=== PATIENT | female | born 1965 | race Caucasian/White ===

== ENCOUNTER 2017-05-13 19:26 | Inpatient (IN) | payer OTHER ==
[~2017-05-13] VITALS: Ht 166.4 cm; Wt 141.7 kg
--- NOTE | ~2017-05-13 | OR ---
PATIENT'S NAME: ALANIS [facility] AGE: 51 Y [address] ROOM: [place] [address] [place] [facility] [place]: 05/13/2017 OR/Procedure Report DISCHARGE DATE: FAMILY PHYSICIAN: PHYSICIAN, NO ATTENDING PHYSICIAN: BONITA RICHARDSON V SURGEON: Geo Beltran MD SILVICULTURE FORESTER: DATE OF PROCEDURE: 05/19/2017 PREOPERATIVE DIAGNOSIS: Cat bite, right lower extremity with cellulitis rule out anterior ankle soft tissue abscess. POSTOPERATIVE DIAGNOSIS: Right lower extremity cellulitis without abscess. PROCEDURE PERFORMED: Incision and drainage of superficial right anterior leg soft tissue infection. ANESTHESIA: 3 mL of 1% Xylocaine. SPECIMEN: None. INDICATION: The patient is a 51-year-old young lady, who approximately 1 week ago had a scratch or a bite from her cat on her posterior calf. She developed a lot of swelling and erythema without fluctuance. She had no signs of compartment syndrome. We have done antibiotics and the posterior calf is normal, is almost normal around the site of the injury, however, just above the ankle crease of the lower right lower extremity, there is a lot of induration and erythema. We have recommended incision and drainage to rule out soft tissue abscess. DESCRIPTION OF PROCEDURE: After informed consent, the patient in her hospital suite had her anterior lower right lower extremity just above the ankle crease prepped with alcohol. We injected 3 mL of 1% Xylocaine. Made a 1 inch incision with a 15 blade scalpel down to the bone. A lot of soft tissue edema was noted without evidence of purulent fluid. Venous bleeding was noted due to the Lovenox utilization. Pressure held. The wrap placed. Continue medical management. GEO BELTRAN MD WTS/modl PATIENT'S NAME: KARLA THAPA [facility] AGE: 51 Y [address] ROOM: [place] [address] [place] [facility] [place]: 05/13/2017 OR/Procedure Report DISCHARGE DATE: FAMILY PHYSICIAN: PHYSICIAN, NO ATTENDING PHYSICIAN: BONITA RICHARDSON V /[id number] d: 05/19/17 1456 t: 05/27/17 0911, OPERATIVE SUMMARY
--- NOTE | ~2017-05-13 | HP ---
PATIENT'S NAME: ALANIS [facility] AGE: 51 Y [address] ROOM: [place] [address] [place]ATION: [facility] [place] ADMIT DATE: 05/13/2017 History & Physical DISCHARGE DATE: FAMILY PHYSICIAN: PHYSICIAN, NO ATTENDING PHYSICIAN: BONITA RICHARDSON V DATE OF SERVICE: CHIEF COMPLAINT: Right lower extremity swelling. HISTORY OF PRESENT ILLNESS: The patient is a previously healthy, 51-year-old female. She stepped on one of her cats yesterday and either got bit or scratched. She bled profusely from her right calf from the puncture wound, but eventually that stopped. Today, the right calf swelled up and turned purplish. Later in the day, the patient developed nausea, vomiting, fevers, and chills. She initially went to [facility] and subsequently went to the ER. Here, she was found to have a temperature of 103.7 and a white count of 18. An admission for intravenous antibiotics was requested. REVIEW OF SYSTEMS: The patient endorses nausea, vomiting, fevers, and chills. She denies any chest pain, diaphoresis, or syncope. All systems have been reviewed and are negative aside from the pertinent positives mentioned above. PAST MEDICAL HISTORY: Significant for distant tonsillectomy. CURRENT MEDICATIONS: None. ALLERGIES: THE PATIENT HAS A CONFIRMED PENICILLIN AND SULFA ALLERGY. SOCIAL HISTORY: Negative for any toxic habits. FAMILY HISTORY: Reviewed and is noncontributory due to known underlying etiology for the patient's presentation. PHYSICAL EXAMINATION: VITAL SIGNS: Blood pressure 112/ , temperature 103.7, blood pressure PATIENT'S NAME: KARLA THAPA [facility] AGE: 51 Y [address] ROOM: [place] [address] LOCATION: [facility] [place]MIT DATE: 05/13/2017 History & Physical DISCHARGE DATE: FAMILY PHYSICIAN: PHYSICIAN, NO ATTENDING PHYSICIAN: BONITA RICHARDSON V 172/ , and saturating 95% on room air. GENERAL: A morbidly obese, middle-aged female, in no acute distress. NEUROLOGIC: Nonfocal. EYES: Show pupils are equal and reactive to light. LYMPHATIC: Shows no cervical lymphadenopathy. ENDOCRINE: Shows no thyromegaly. LUNGS: Clear to auscultation. HEART: Rate is tachycardic and regular with no appreciable murmurs, gallops, or rubs. ABDOMEN: Soft, nontender, nondistended. : No costovertebral angle tenderness. VASCULAR: 2+ pedal pulses bilaterally. MUSCULOSKELETAL: Unremarkable. SKIN: Reveals a purplish discoloration of her right calf circumferentially. There is warmth and swelling in this calf. There are 2 puncture santiago on the posterior medial aspect of the calf, which appear more consistent with the bite santiago than scratch santiago. PSYCHIATRIC: Reveals appropriate mood, cognition, and affect. LABORATORY DATA: Studies performed in the ER are significant for white count of 18 without any bandemia, CRP of 4.67, electrolytes unremarkable, lactate is 1.5. ASSESSMENT AND PLAN: This is a 51-year-old female who meets sepsis criteria. She will be admitted under sepsis protocol. Time-zero for sepsis is noted as 2027. Lactate and blood cultures have been drawn. We will start the patient on antibiotics to cover cat scratch as well as cat bite. Due to penicillin allergy, we will put her on clindamycin. We will check repeat lactate 3 hours after time zero. We will provide her with symptomatic support with antiemetics and antipyretics. We will follow up her cultures as well as clinical exam in the morning. We will also get right lower extremity Dopplers to rule out a deep vein thrombosis. Given her morbid obesity, the patient will be placed on deep vein thrombosis prophylaxis. Additional management will depend on clinical course. Time dedicated to this patient's encounter is 35 minutes. MD JUAN AMAYA/heidy PATIENT'S NAME: KARLA THAPA [facility] AGE: 51 Y [address] ROOM: [address] [address] LOCATION: [facility] [place] ADMIT DATE: 05/13/2017 History & Physical DISCHARGE DATE: FAMILY PHYSICIAN: PHYSICIAN, NO ATTENDING PHYSICIAN: BONITA RICHARDSON V /[id number] D: [id number] T: [id number] HISTORY & PHYSICAL
--- NOTE | ~2017-05-13 | DS ---
PATIENT'S NAME: KARLA THAPA [facility] AGE: 51 Y [address] ROOM: [address] [address] [place] [facility] [place]: 05/13/2017 Discharge Summary DISCHARGE DATE: 05/20/2017 FAMILY PHYSICIAN: PHYSICIAN, NO ATTENDING PHYSICIAN: Stefano Alfaro V PRINCIPAL DISCHARGE DIAGNOSES: Cat scratch fever with bacteremia. SECONDARY DIAGNOSES: 2. Sepsis, blood culture positive for pasteurella canis susceptible to Levaquin and tetracyclines. 3. Cellulitis. 4. Possible lymphedema of the right lower leg. 5. Macular papular rash, this was documented with a photograph as present prior to the first dose of ceftriaxone. 6. Allergy versus adverse reaction to cephalosporin: Generalized tingling with palpitations during the infusion. 7. Morbid obesity. 8. Hyperglycemia with hemoglobin A1c of 5.8, at risk for progression to diabetes range. CONSULTATIONS: General Surgery, Dr. Guerrero. PROCEDURES: Incision and drainage, SMALL ON RIGHT LOWER LEG just superior to ankle, on 05/19/2017. BRIEF HISTORY: Ms. Thapa is a quiet and morbidly obese female, who had accidentally stepped on her cat and it bit or scratched her on the day prior to admission. She had profuse bleeding from the right posterior calf. Her calf became edematous and purplish after 24 hours and she developed nausea, vomiting, fevers, and chills. She had a temperature of 103.7 and a white count elevated to 18. She was started on vancomycin initially, and after blood cultures were resulted, she was started on Levaquin on 05/14. Despite onset of Levaquin by the , her leg was still quite red, and we restarted Flagyl on the which had been stopped when levaquin started. Because of increased heat and not much improvement in her level of comfort and persistent swelling, and dependent edema, I felt additional coverage was indicated. She was started on ceftriaxone pm of 05/18, which was also on the susceptibility panel at 1 g b.i.d., and she actually had notable improvement yesterday, but then had a reaction described above during the infusion of ceftriaxone in the evening, it was stopped and she was given Solu- Medrol and Zantac IV, and she is much improved this morning. She has been seen by the general surgeon, who says that he will see her in the office next , and he agrees that she is improved and should be ready to go home on oral antibiotics. PATIENT'S NAME: KARLA THAPA [facility] AGE: 51 Y [address] ROOM: [place] [address] [place] [facility] [place]: 05/13/2017 Discharge Summary DISCHARGE DATE: 05/20/2017 FAMILY PHYSICIAN: PHYSICIAN, NO ATTENDING PHYSICIAN: Stefano Alfaro V The patient also had somewhat elevated blood sugars while she was here and hemoglobin A1c is borderline for progression to diabetes, and she is recommended to have a low carb diet. Dietary counseling was recommended. She has not had a PCP and we are recommending that she see Dr. Mckay. There is suspicion that she has venous stasis worse on the right than the left, and she has been seen by our wound care team, who suggested stockings in addition to dietary modifications and weight loss efforts. INSTRUCTIONS AT DISCHARGE: 1. Diet: Low carb, lean protein with each meal. 2. Ambulate as tolerated at least 15 minutes twice a day and increase gradually. 3. Follow up with Dr. Alley Mckay less than a week after discharge, hopefully early in the week, but today is Tuesday she should see her by later than Tuesday. She is recommended to go to [facility] for [facility] compression garments and to see Dr. Guerrero, General Surgery on . MEDICATIONS AT DISCHARGE: 1. Levofloxacin 750 mg p.o. daily. 2. Multivitamin p.o. daily. 3. Florastor 250 p.o. b.i.d., I am recommending she take at least for a month and to avoid taking at the time of antibiotics. 4. Tylenol p.r.n. 5. Benadryl topical and oral p.r.n. 6. Ibuprofen 800 p.r.n. pain. 7. Doxycycline 100 mg p.o. b.i.d. x10 days, start today when she leaves here. Other discharge instructions include to notify MD if temp greater than 101. CONDITION AT DISCHARGE: Good. She is currently afebrile. Her wound is improved. SOCRATES MOONEY MD LM/heidy /[id number] d: 05/21/17 0648 t: 05/23/17 1236, DISCHARGE SUMMARY
--- NOTE | ~2017-05-13 | ER ---
PATIENT'S NAME: KARLA THAPA [facility] AGE: 51 Y [address] ROOM: [place] [address] [place]: [facility] [place] DATE: 05/13/2017 ER/Outpatient Report DISCHARGE DATE: FAMILY PHYSICIAN: PHYSICIAN, NO ATTENDING PHYSICIAN: BONITA RICHARDSON V SEEN AT: 1940 hours. HISTORY OF PRESENT ILLNESS: The patient is a 51-year-old female, who states last night her cat accidentally scratched or possibly bit the back of her calf. The patient today developed area of redness, tenderness, and fever. She also states she has had 2 emesis today and one diarrhea stool. IMMUNIZATION STATUS: Tetanus is current. ALLERGIES: PENICILLIN, SULFA, AND CODEINE. CURRENT MEDICATIONS: See copied list. MEDICAL HISTORY: Chronic weight issue. She denies any diabetes. She has a history of endometriosis. SURGERIES: Adenoidectomy and exploratory laparotomy for endometriosis. SOCIAL HISTORY: Denies tobacco use. Alcohol socially. REVIEW OF SYSTEMS: Today: GENERAL: Has developed fever and chills. HEAD/EENT: Denies headache or sore throat. RESPIRATORY: Denies cough or shortness of breath. CARDIOVASCULAR: History of a heart murmur when she was a child. GASTROINTESTINAL: She has been nauseated and vomited twice. Had a couple loose stools today. No abdominal pain. GENITOURINARY: Denies flank pain, burning, frequency, or urgency of urination. SKIN: Has developed a large area of redness of her right calf following a PATIENT'S NAME: KARLA THAPA [facility] AGE: 51 Y [address] ROOM: [place] [address] LOCATION: [facility] [place]MIT DATE: 05/13/2017 ER/Outpatient Report DISCHARGE DATE: FAMILY PHYSICIAN: PHYSICIAN, NO ATTENDING PHYSICIAN: BONITA RICHARDSON V bite or a scratch from her pet cat. PHYSICAL EXAMINATION: VITAL SIGNS: Blood pressure was 172/74, fever was 103.7, pulse 112, respirations 20, and O2 saturations 95%. GENERAL APPEARANCE: White female. She is obese. Oriented x3. HEAD/EENT: Head: Normocephalic. Eyes: PERRLA. No icterus. Nose: Airway is patent. Mouth: Tongue midline. Buccal membranes moist. NECK: No adenopathy present. LUNGS: Breath sounds diminished with no rales or rhonchi were present. HEART: Heart tones distant, but regular. ABDOMEN: Obese. Slightly tender. No actual guarding. EXTREMITIES: On the right calf, there is a large area of erythema. On the posterior calf, there does appear to be either a central bite elgin, quite tender, somewhat firm. LABORATORY DATA AND X-RAYS: CBC: White count elevated at 18.7. Her ANC was at 17.1. Her sedimentation rate was 24. Lactate was 1.5. Procalcitonin was 0.06. CMS: Slightly elevated glucose at 107, otherwise unremarkable. CRP was 4.67. Urine was clear, no evidence of any infection. Chest x-ray, peripheral lung collins appeared clear, possibly some increased hilar markings. Blood cultures x2 drawn. ASSESSMENT: 1. Cellulitis of the right calf as a result of a cat bite or scratch. 2. Morbid obesity. PLAN: The patient will be admitted by the Hospitalist Service. IV was started here in the emergency room. Clindamycin 600 mg given IV as recommended by the hospitalist. SHAUNA FIGUEROA FOR MD ELKE WATT/heidy /[id number] d: 05/14/17 0334 t: 05/28/17 0731, OUTPATIENT REPORT
--- NOTE | ~2017-05-13 | ENPV ---
Vascular Lower Extremities DVT Study Procedure Demographics Patient Name KARLA THAPA Date of Study 05/14/2017 Patient Number [id number] Gender Female Date of 1965 Age 51 Visit Number [id number] Height Weight Number Room Number G3222 BSA BMI Referring Interpreting Beck Urbina MD Physician Physician Physician Eloina Agarwal Smoking Tobacco Packing Machine Hand Physician Stanley MARKS Probation Worker Jessica [facility], [facility] Conclusions Summary No evidence of deep vein thrombosis or superficial thrombophlebitis in the right lower extremity. Procedure Type of Study: Veins:Lower Extremities DVT Study, Lower Extremity Right. Additional Indications:cellulitis Appropriate Use Criteria:9 Patient Status:Routine. Study Location:Inpatient Portable. Technical Quality:Adequate visualization. Velocities are measured in cm/s ; Diameters are measured in cm Right Lower Extremities DVT Study Measurements Right 2D and Doppler Measurements + + + + +------+------+ + !Location !Visualized!Compressibility!Thrombosis!Signal!Reflux!Reflux ! ! ! ! ! ! ! !(sec) ! + + + + +------+------+ + !GSV Thigh !Yes !Yes !None !Phasic! ! ! + + + + +------+------+ + !Common !Yes !Yes !None !Phasic! ! ! !Femoral ! ! ! ! ! ! ! + + + + +------+------+ + !Prox !Yes !Yes !None !Phasic! ! ! !Femoral ! ! ! ! ! ! ! + + + + +------+------+ + !Mid Femoral!Yes !Yes !None !Phasic! ! ! + + + + +------+------+ + !Dist !Yes !Yes !None !Phasic! ! ! !Femoral ! ! ! ! ! ! ! + + + + +------+------+ + !Popliteal !Yes !Yes !None !Phasic! ! ! + + + + +------+------+ + !Gastroc !Yes !Yes !None !Phasic! ! ! + + + + +------+------+ + !PTV !Yes !Yes !None !Phasic! ! ! + + + + +------+------+ + !Peroneal !Yes !Yes !None !Phasic! ! ! + + + + +------+------+ + Signature dtt: JAMES MANUEL dtd: 05/14/17 0833 Physician Self Edit
--- NOTE | ~2017-05-13 | HP ---
PATIENT'S NAME: ALANIS [facility] AGE: 51 Y [address] ROOM: [place] [address] [place] [facility] [place] DATE: 05/13/2017 History & Physical DISCHARGE DATE: FAMILY PHYSICIAN: PHYSICIAN, NO ATTENDING PHYSICIAN: BONITA RICHARDSON V DATE OF SERVICE: CHIEF COMPLAINT: Right lower leg redness and pain. HISTORY OF PRESENT ILLNESS: The patient states that she was either bit or scratched by her cat afternoon. By Tuesday, it was red and painful. By Tuesday evening, she was complaining of nausea, vomiting, fever, and chills. She came to the ER for evaluation at that point. She was admitted under sepsis criteria for lower right leg cellulitis. Consult to Surgery placed for a concern of progressing cellulitis, possible compartment syndrome, and possible necrotizing fasciitis. The patient states that her tetanus vaccine is up to date. ALLERGIES: PENICILLIN, SULFA, AND CODEINE. CURRENT MEDICATIONS: Multiple vitamin. MEDICAL HISTORY: Obesity. Denies diabetes. Endometriosis. SURGERIES: Adenoidectomy. SOCIAL HISTORY: Denies tobacco. Alcohol socially. REVIEW OF SYSTEMS: GENERAL: Positive for fever and chills, fatigue. Negative for weight changes. HEENT: Denies headache, sore throat, or nasal congestion. RESPIRATORY: Denies cough or shortness of breath. CARDIOVASCULAR: Denies chest pain, palpitations, or tachycardia. GI: Positive for nausea and vomiting. Negative for change in bowel pattern. Negative abdominal pain. GENITOURINARY: Denies dysuria, frequency, or urgency. [facility] 51 [facility] [address] ROOM: [place] [address] [place] [facility] [place] DATE: 05/13/2017 History & Physical DISCHARGE DATE: FAMILY PHYSICIAN: PHYSICIAN, NO ATTENDING PHYSICIAN: BONITA RICHARDSON V SKIN: See HPI. Other aspects of skin, negative. PHYSICAL EXAMINATION: VITAL SIGNS: Blood pressure 130/63, heart rate 90, respirations 20, 94% O2 saturation on room air, and temperature 99.1. GENERAL: No distress, however, in pain, alert. HEENT: Mucous membranes moist. PERRL, EOMI. NECK: Supple. CARDIAC: Regular rate and rhythm. PULMONARY: Clear to auscultation. ABDOMEN: Obese, bowel sounds positive, nontender. EXTREMITIES: Right lower extremity with marked erythema. Edges marked with a permanent marker. Wrapping 360 degrees around her leg. Skin is tight secondary to swelling. Hot to touch. Two round ulcerations on the back of her calf approximately 4 cm apart, with surrounding tenderness and induration. No fluctuation noted. Cap refill of the foot, less than 2 seconds. Intact sensation. Full range of motion at ankle with mild tenderness in the calf and anterior leg. LABORATORY DATA: WBC 18.0, hemoglobin 10.3, hematocrit 33.1, platelets 249 with a neutrophil level of 16.0. Chemistry within normal limits. ASSESSMENT AND PLAN: A 51-year-old female with sepsis secondary to cat scratch/bite with associated right lower extremity cellulitis. 1. Sepsis. Currently on clindamycin, vancomycin has been ordered. Cellulitis of right lower extremity concern that this may worsen into a possible compartment syndrome versus abscess formation versus necrotizing fasciitis. There is no evidence that compartment syndrome is active at this point, with good movement of the foot as well as softness of the leg despite the skin being tight. No evidence of necrotic fascia at this time with no crepitus or fluctuation with palpation. From a surgical standpoint, we will observe as this progresses once she has been on antibiotics for 24 hours. If it does worsen with signs of compartment syndrome, recommend consult to Orthopedics for measurements of compartment pressures. HERNÁN CHEUNG MD RESIDENT FOR ALEXIA BELTRAN MD MR/modl PATIENT'S NAME: KARLA THAPA [facility] AGE: 51 Y [address] ROOM: [address] [address] [place]: [facility] [place] DATE: 05/13/2017 History & Physical DISCHARGE DATE: FAMILY PHYSICIAN: PHYSICIAN, NO ATTENDING PHYSICIAN: BONITA RICHARDSON V /[id number] D: [id number] T: 913 HISTORY & PHYSICAL
[2017-05-13 20:36] LABS: BASOPHIL # 0.1 K/uL (0.0-0.2); BASOPHIL % 0.3 %; EOSINOPHIL % 0.1 %; HEMATOCRIT 37.2 % (33.0-46.0); HEMOGLOBIN 11.4 g/dL (10.0-15.0); IMMATURE GRANULOCYTE # 0.1 K/uL (0.0-0.3); IMMATURE GRANULOCYTE % 0.4 %; LYMPHOCYTE # 0.5 K/uL (0.8-4.0); LYMPHOCYTE % 2.8 %; MCH 25.4 pg (27.0-34.0); MCHC 30.6 gm/dL (32.0-36.5); MCV 82.9 fl (83.0-98.0); MONOCYTE # 0.9 K/uL (0.0-1.0); MONOCYTE % 4.9 %; MPV 9.3 fl (9.4-12.4); NEUTROPHIL # (ANC) 17.1 K/uL (1.8-7.8); NEUTROPHIL % 91.5 %; NRBC % 0 /100WBC (0-0.00); PLATELET COUNT 284 K/uL (150-450); RBC 4.49 M/uL (3.50-5.50); RDW-CV 14.4 % (11.9-14.6); WBC 18.7 K/uL (4.0-11.0)
[2017-05-13 20:53] LABS: ALBUMIN 3.7 gm/dL (3.5-5.0); ANION GAP 11.1 (10.0-19.0); CALCIUM 8.6 mg/dL (8.5-10.5); CREATININE 0.8 mg/dL (0.5-1.1); POTASSIUM 4.1 mMol/L (3.7-5.1); TOTAL BILIRUBIN 0.4 mg/dL (0.0-1.5)
[2017-05-13 21:45] LABS: BILIRUBIN URINE NEGATIVE (NEGATIVE); BLOOD URINE 10 /UL (NEGATIVE); COLOR URINE YELLOW (YELLOW); GLUCOSE URINE NEGATIVE (NEGATIVE); KETONE URINE NEGATIVE (NEGATIVE); LEUKOCYTES URINE 25 /UL (NEGATIVE); NITRITE URINE NEGATIVE (NEGATIVE); PROTEIN URINE NEGATIVE (NEGATIVE); SPEC GRAVITY URINE 1.015 (1.003-1.035); TURBIDITY URINE CLEAR (CLEAR); UROBILINOGEN URINE NORMAL (NORMAL)
[2017-05-13 22:25] LABS: RBC URINE NEGATIVE #/HPF (NEGATIVE); WBC URINE 0-2 #/HPF (NEGATIVE)
[2017-05-13 22:26] LABS: BACTERIA URINE FEW (NEGATIVE)
[2017-05-14] MEDS ORDERED: MULTIVITAMIN PACK PO (00:16)
[2017-05-14 05:10] LABS: BASOPHIL % 0.2 %; HEMATOCRIT 33.1 % (33.0-46.0); HEMOGLOBIN 10.3 g/dL (10.0-15.0); IMMATURE GRANULOCYTE # 0.1 K/uL (0.0-0.3); IMMATURE GRANULOCYTE % 0.5 %; LYMPHOCYTE % 5.7 %; MCH 25.6 pg (27.0-34.0); MCHC 31.1 gm/dL (32.0-36.5); MCV 82.1 fl (83.0-98.0); MONOCYTE # 0.8 K/uL (0.0-1.0); MONOCYTE % 4.7 %; MPV 9.2 fl (9.4-12.4); NEUTROPHIL % 88.9 %; NRBC % 0 /100WBC (0-0.00); PLATELET COUNT 249 K/uL (150-450); RBC 4.03 M/uL (3.50-5.50); RDW-CV 14.4 % (11.9-14.6)
[2017-05-14 05:24] LABS: BLOOD UREA NITROGEN 16 mg/dL (6-24); CALCIUM 8.3 mg/dL (8.5-10.5); CHLORIDE 106 mMol/L (96-110); CO2 26 mMol/L (22-32); CREATININE 0.6 mg/dL (0.5-1.1); SODIUM 139 mMol/L (135-145)
--- NOTE | 2017-05-14 06:42 | NUR ---
ADMITTED FOR CELLULITIS OF R) LEG FROM A CAT SCRATCH AND BITE. RED AND SWOLLEN. FEVERS OFF AND ON, HIGH OF 101.1 THIS SHIFT. IV L) AC NS @ 40ML/HR. UP AD SARA. CLINDAMYCIN Q6 HRS.
--- NOTE | 2017-05-14 19:11 | NUR ---
Significant Event: Took over patient cares about 1030. Patient has an IV to left AC with good blood return. Right leg is swollen, red and feels like it is buring to the patient. The edges of the redness were marked today by . She had a headache this morning and got some tylenol for that about 0830. She had a fever of 101.4 this afternoon gave her 650mg of tylenol. Her temp came down to 100.2 at 1720. Drinking and voiding with no problems. Up with a stand by assist. VSS on room air. at bedside. Calm and cooperative with all cares. Follow up: Fever/tylenol
[2017-05-15 04:55] LABS: BASOPHIL % 0.3 %; EOSINOPHIL # 0.1 K/uL (0.0-0.5); EOSINOPHIL % 0.9 %; HEMATOCRIT 32.1 % (33.0-46.0); HEMOGLOBIN 9.7 g/dL (10.0-15.0); IMMATURE GRANULOCYTE # 0.1 K/uL (0.0-0.3); IMMATURE GRANULOCYTE % 0.5 %; LYMPHOCYTE # 1.4 K/uL (0.8-4.0); LYMPHOCYTE % 11.8 %; MCH 25.1 pg (27.0-34.0); MCHC 30.2 gm/dL (32.0-36.5); MCV 83.2 fl (83.0-98.0); MONOCYTE % 8.8 %; MPV 9.3 fl (9.4-12.4); NEUTROPHIL # (ANC) 9.1 K/uL (1.8-7.8); NEUTROPHIL % 77.7 %; NRBC % 0 /100WBC (0-0.00); PLATELET COUNT 241 K/uL (150-450); RBC 3.86 M/uL (3.50-5.50); RDW-CV 14.6 % (11.9-14.6); WBC 11.7 K/uL (4.0-11.0)
--- NOTE | 2017-05-15 05:03 | NUR ---
Significant Event: Pt alert and oriented. Cooperative with cares. Has rested off and on throughout the shift. Up with stand by assist. Tolerating regular diet with no nausea/vomiting. Right leg continues to be red and warm to touch. Redness has slightly increased outside of the marked area. Right foot has good pedal pulse and cap refill is less than 2. Right calf measured 55 cm, 55.5 cm and 55 cm. Left calf measured 52 cm all threee times. Pt complains of burning feeling to right leg. Tylenol given x1 for pain/fever with relief noted. Temp max was 102.1. Latest temp was 99.9 Other vital signs stable. Continues on IV antibiotics. Will continue to monitor at this time. Follow up: pain/fever, redness to right leg
[2017-05-15 05:07] LABS: ANION GAP 8.7 (10.0-19.0); BLOOD UREA NITROGEN 8 mg/dL (6-24); CALCIUM 8.3 mg/dL (8.5-10.5); CHLORIDE 106 mMol/L (96-110); CO2 27 mMol/L (22-32); CREATININE 0.6 mg/dL (0.5-1.1); PHOSPHORUS 2.5 mg/dL (2.5-4.9); POTASSIUM 3.7 mMol/L (3.7-5.1); SODIUM 138 mMol/L (135-145)
--- NOTE | 2017-05-15 12:25 | NUR ---
CONSULT FOR HYPERGLYCEMIA/OBESITY DIET ED RECEIVED; WILL COMPLETE W/PT PRIOR TO DISCHARGE.
--- NOTE | 2017-05-15 17:52 | NUR ---
Significant Event: Patient is alert and oriented X3. Calm and cooperative with all cares. Legs are to be measured bilateral at scratch elgin with every vital sign. This morning was 54.5cm on the right and 51cm on the right. Sencond assemssment was 55cm on the right and 50cm on rith left. The area was weeping this afternoon, seemed to have stopped after a couple hours. Patient ambulated in the hallways. Up to the chair and bathroom today with stand by assist. Moved to a ADA 1800 diet. Patients appetitie has been decreased today. On multiple IV antibiotics. IV to left AC with good blood return. Nitish has a temp for most of the day. Gave her Tylenol x2 once at 1220 and again at 1642 for a temp of 101.0. Came down to to 100.1. Follow up: Fever
--- NOTE | 2017-05-16 05:46 | NUR ---
Significant Event: Pt alert and oriented. Cooperative with cares. Has rested off and on throughout the night. Up with stand by assist. Continues on IV antibiotics. Redness marked to right lower leg. Redness doesn't look like it has increased, redness did seem to fade in a few areas. Bilateral calf measurements were right 55cm and left 51.5cm with first assessment and right 54.5cm and left 51cm at second assessment. Pt has denied any nausea/vomiting. Tylenol given x1 for temp of 101.2, last temp was 99.5. Ultram given x1 for pain. Ice PRN to leg. Showered already today. VSS. Will continue to monitor at this time. Follow up: pain/fever, redness
[2017-05-16 06:03] LABS: BASOPHIL % 0.4 %; EOSINOPHIL # 0.1 K/uL (0.0-0.5); EOSINOPHIL % 1.2 %; HEMATOCRIT 31.2 % (33.0-46.0); HEMOGLOBIN 9.4 g/dL (10.0-15.0); IMMATURE GRANULOCYTE # 0.1 K/uL (0.0-0.3); IMMATURE GRANULOCYTE % 0.9 %; LYMPHOCYTE # 1.6 K/uL (0.8-4.0); LYMPHOCYTE % 14.9 %; MCHC 30.1 gm/dL (32.0-36.5); MONOCYTE # 0.8 K/uL (0.0-1.0); MONOCYTE % 7.3 %; MPV 9.3 fl (9.4-12.4); NEUTROPHIL # (ANC) 7.9 K/uL (1.8-7.8); NEUTROPHIL % 75.3 %; NRBC % 0 /100WBC (0-0.00); PLATELET COUNT 259 K/uL (150-450); RBC 3.76 M/uL (3.50-5.50); RDW-CV 14.2 % (11.9-14.6); WBC 10.5 K/uL (4.0-11.0)
[2017-05-16 06:17] LABS: ALBUMIN 2.8 gm/dL (3.5-5.0); ANION GAP 12.7 (10.0-19.0); BLOOD UREA NITROGEN 7 mg/dL (6-24); CALCIUM 8.2 mg/dL (8.5-10.5); CHLORIDE 105 mMol/L (96-110); CO2 25 mMol/L (22-32); CREATININE 0.4 mg/dL (0.5-1.1); POTASSIUM 3.7 mMol/L (3.7-5.1); SODIUM 139 mMol/L (135-145)
--- NOTE | 2017-05-16 12:08 | NUR ---
Spoke with patient today about hyperglycemia/obesity. Disucssed ways to prevent diabetes, including weight loss and increased physical activity. Encouraged patient to start tracking food intake in a diary on online tracker. Provided patient with an 1800 calorie five day plan to use as a reference when making her own meals. 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 Instead, she mostly delivers meals and fills drinks. She is on her feet a lot, which she says hurts her ankles. We brainstormed some exercises she was willing to consider, including exercising in a pool and chair exercises. We also briefly discussed how monitoring carb intake will be important. Encouraged her to see outpatient dietitian for medical nutrition therapy after discharge and provided contact information. She will need physician's orders for this.
--- NOTE | 2017-05-16 15:23 | NUR ---
Introduced self and care management services to patient. Lives in [place] with spouse. Independent. Plans on going home on discharge. Denies needs. Will follow and assist with dc planning as needs identified.
--- NOTE | 2017-05-16 17:03 | NUR ---
Patient is alert and oriented, VSS, on room air. IV to L) AC infusing NS at 40ml/hr, santino and susan DC'd, still on Levaquin IV. Has positive blood cultures of pasteurella canis. RLE is marked, shows more signs of swelling, needs measurements done of leg with every assessment at site of scratch. Walked in the halls this shift. Will void almost every time you are in the room. Afebrile this shift. Continue to monitor cellulitis.
--- NOTE | 2017-05-17 04:05 | NUR ---
Significant Event: Patient is alert and oriented x 3. On room air. First assessment, patient had temp of 100.3. Increased to 100.5 an hour later, MD aware. Ibuprofen ordered and given at 2006. Patient has been afebrile since. Other VSS. Up with SBA. To measure bilateral leg circumferences with each assessment. Cellulitis to right lower leg is marked. Voiding well. Denies any pain. Left AC IV with NS running at 40 ml/hr. Receiving IV Levaquin. Patient is pleasant and cooperative with cares. Follow up:
[2017-05-17 15:28] LABS: BASOPHIL % 0.5 %; EOSINOPHIL # 0.2 K/uL (0.0-0.5); EOSINOPHIL % 1.9 %; HEMATOCRIT 32.1 % (33.0-46.0); HEMOGLOBIN 9.9 g/dL (10.0-15.0); IMMATURE GRANULOCYTE # 0.1 K/uL (0.0-0.3); IMMATURE GRANULOCYTE % 1.4 %; LYMPHOCYTE # 1.3 K/uL (0.8-4.0); LYMPHOCYTE % 16.6 %; MCH 25.4 pg (27.0-34.0); MCHC 30.8 gm/dL (32.0-36.5); MCV 82.3 fl (83.0-98.0); MONOCYTE # 0.6 K/uL (0.0-1.0); MONOCYTE % 6.9 %; MPV 9.2 fl (9.4-12.4); NEUTROPHIL # (ANC) 5.8 K/uL (1.8-7.8); NEUTROPHIL % 72.7 %; NRBC % 0 /100WBC (0-0.00); PLATELET COUNT 278 K/uL (150-450); RDW-CV 14.1 % (11.9-14.6)
--- NOTE | 2017-05-17 16:09 | NUR ---
Patient is alert and oriented, VSS, on room air. R) leg is more red today, spreading into the ankle/foot. Started back up on flagyl. New IV placed in L) inner forearm, had great blood return. Had a low grade fever of 99.8 with second assessment, gave IS to use. Continue to monitor temps and cellulitis.
--- NOTE | 2017-05-18 05:15 | NUR ---
Significant Event:pt alert and oriented x4. pleasant with staff and cares. denies pain when asked. up ad juan c in room does well. right lower leg continues to be red and swollen. last measure was 54.5cm around to right leg. pt encouraged to keep leg elevated. ice to right leg during night. iv to right forearm running nacl at 40ml/hr, pt get iv antibiotics. high fever during shift 100.2. takes medication whole with no complications noted. contient of boewl and bladder. walks in [place] x1. shower this am. pt uses call light approp. Follow up:
--- NOTE | 2017-05-18 16:02 | NUR ---
A-SCREENED D/T LOS HT: 65.5 IN. WT: 141.7 KG. IBW: 58 KG. BMI: 51.2 LABS REVIEWED: CRP 4.67 MEDS: LEVAQUIN, FLAGYL, MVI, ULTRAM, ZOFRAN DIET RX: CONSISTENT CARB. PO INTAKE 75-100% EST NUTR NEEDS: 1007-5058 (26-30 GM/KG IBW) 116-145 GM PROTEIN (2.0-2.5 GM/KG IBW) 1 ML FLUID/KCAL D-NOT AT NUTRITION RISK; NO NUTRITION DX IDENTIFIED I-CONTINUE W/CURRENT DIET RX. M/E-ASSIST NEEDED
--- NOTE | 2017-05-18 16:32 | NUR ---
Significant Event:PT. ALERT AND COOPERATIVE. UP IN HALLWAYS X4 TODAY. RIGHT LEG MEASUREMENT WAS 54 THIS MORNING AND NOW 56 CM. LEFT LEG 50CM. RIGHT LEG EDEMATOUS 4+ AND VERY RED. C/O SWELLING AND PAIN WHEN DOWN. ELEVATED ON PILLOW IN RECLINER. ICE BAG TO WOUND. C/O SOME STOMACH DISTRESS THIS AFTERNOON. TEMP 98.7, 99.0 AND 99.4 TODAY. POSIVITE CULTURES FOR PASTURELLA CANNIS BACTERIA FROM CAT SCRATCH. IV TO RFA. Follow up:
--- NOTE | 2017-05-19 04:23 | NUR ---
Significant Event:pt alert and oriented x4.pleasant with staff and cares. up in room ad juan c. uses call light as needed. contient of bowel and bladder. iv to right forearm running nacl at 40ml/hr. vss. afebrile during shift. continue to measure lower legs with each assesment right lower leg consistent at 53cm each assesment. however also continues to be very swollen and red. right foot has 3-4+pitting edema. pedal pulse present. denies numbness and tingling during shift. foot elevated, pt up and does walk in alvarez. shower done this am. iv rochephine started at hs. Follow up:
[2017-05-19 06:40] LABS: HEMATOCRIT 33.6 % (33.0-46.0); HEMOGLOBIN 10.2 g/dL (10.0-15.0)
[2017-05-19 06:55] LABS: ALBUMIN 2.9 gm/dL (3.5-5.0); ANION GAP 11.8 (10.0-19.0); BLOOD UREA NITROGEN 9 mg/dL (6-24); CALCIUM 8.4 mg/dL (8.5-10.5); CHLORIDE 104 mMol/L (96-110); CO2 27 mMol/L (22-32); CREATININE 0.5 mg/dL (0.5-1.1); PHOSPHORUS 3.9 mg/dL (2.5-4.9); POTASSIUM 3.8 mMol/L (3.7-5.1); SODIUM 139 mMol/L (135-145)
--- NOTE | 2017-05-19 14:45 | NUR ---
Talked with patient, no concerns for me today, denies dc planning needs. Web Press Roll Tender will follow and assist with dc planng as needs identified.
--- NOTE | 2017-05-19 17:07 | NUR ---
Significant Event:PT AD SARA IN ROOM AND TO BR. HAD I AND D THIS MORNING BY DR. BELTRAN. RIGHT LEG MEASURED 47ML TODAY. REDNESS IS DARKER COLORED. IV ROCHEPHIN TODAY. C/O LEF INCISION PAIN AND ORAL PAIN MEDS GIVEN. HAS RASH ON BACK AND ORAL BENADRYL AND TOPICAL BENADRYL APPLIED. EDEMA RIGHT FOOT IS NOW 2+. WITH PEDAL PULSE PRESENT. Follow up:
--- NOTE | 2017-05-20 07:32 | NUR ---
Significant Event: Patient is alert and oriented x 3. VSS on room air. Max temp was 99.8. Rash to face and upper back noted. Benadryl given at 2311. MD momin'meliza Rocephin IV due to patient feeling fatigued, heart palpitations, and the rash. IV Solumedrol given at 2358. Patient states felt better after those meds were given. Motrin given for headache at 2311. Up independently. Left forearm IV with NS running at 40 ml/hr. Receiving IV Flagyl and PO Levaquin. Right lower extremity 2-3+ edema. Dressing to right lower leg I&D site is intact. To measure right lower extremity with assessments. Patient is pleasant and cooperative with cares. Follow up:
[2017-05-20] MEDS ORDERED: LEVAQUIN 750 M750 MG PO (10:13)
[2017-05-20] MEDS ORDERED: MULTI VITAMIN1 EACH PO (10:14)
[2017-05-20] MEDS ORDERED: FLORASTOR250 MG PO (10:16)
[2017-05-20] MEDS ORDERED: TYLENOL325 MG PO (10:17)
[2017-05-20] MEDS ORDERED: BENADRYL 2% CREAM2 % TOP (10:19)
[2017-05-20] MEDS ORDERED: BENADRYL25 MG PO (10:20)
[2017-05-20] MEDS ORDERED: MOTRIN800 MG PO (10:22)
[2017-05-20] MEDS ORDERED: DOXYCYCLINE100 MG PO (10:23)
== END 2017-05-20 12:50 | disposition disaster alternative care site (69) | DRG 854 ==
LOC: GMED 19:26 → GMSU 21:25
PROVIDERS: Emergency Medicine; Family Medicine; Internal Medicine; Physician Assistant; ADMIT Internal Medicine
PROC: 0J9N0ZZ Drainage of Right Lower Leg Subcutaneous Tissue and Fascia, Open Approach (ICD-10-PCS; principal; 2017-05-19)
DX: A41.9 Sepsis, unspecified organism (principal); A28.1 Cat-scratch disease; Z68.43 Body mass index [BMI] 50.0-59.9, adult; A28.0 Pasteurellosis; L03.115 Cellulitis of right lower limb; E66.01 Morbid (severe) obesity due to excess calories; L02.91 Cutaneous abscess, unspecified; D64.9 Anemia, unspecified; I87.8 Other specified disorders of veins; W55.01XA Bitten by cat, initial encounter; W55.03XA Scratched by cat, initial encounter; Z88.1 Allergy status to other antibiotic agents; R73.9 Hyperglycemia, unspecified
CPT/HCPCS: J0696; J1650; J1956; J2930; J3370; J7030; J7040; J7050

== ENCOUNTER → 2017-07-13 | Outpatient (CLI) | payer OTHER ==
[~2017-07-13] MED LIST: BENADRYL 2% CREAM2 % TOP; BENADRYL25 MG PO; DOXYCYCLINE100 MG PO; FLORASTOR250 MG PO; LEVAQUIN 750 M750 MG PO; MOTRIN800 MG PO; MULTI VITAMIN1 EACH PO; MULTIVITAMIN PACK PO; TYLENOL325 MG PO
--- NOTE | ~2017-07-13 | ENPV ---
Vascular Lower Extremities Venous Insufficiency and Lower Extremities DVT Study Procedure Demographics Patient Name KARLA THAPA Date of Study 07/13/2017 Patient Number [id number] Gender Female Date of 1965 Age 51 Visit Number [id number] Height Accession Number [id number] Weight Room Number BSA BMI Referring Nely Stephen MD Interpreting Beck Urbina MD Physician Jorge Lui Physician Physician Ordering Jorge Lui Tag Machine Operator Physician Truck Driver Teamster Isidoro Orellana T, [facility] Conclusions Summary Normal venous duplex examination of the legs bilaterally with normal venous Doppler signals noted throughout. No evidence of thrombophlebitis is noted bilaterally in the deep and superficial veins of the legs. Small calf thrombi cannot be excluded. There is superficial venous incompetence involving the great saphenous vein and small saphenous vein in the right leg . There is superficial venous incompetence involving the great saphenous vein in the left leg . Procedure Type of Study: Veins:Lower Extremities Venous Insufficiency, Venous Duplex Pre Intervention NH, Lower Extremities DVT Study, Venous Duplex Lower Extremity Bilateral. Indications for Study:Bilateral lower extremity edema. Additional Indications:Dermatitis Appropriate Use Criteria:8 Patient Status:Routine. Study Location:Vascular Lab. Technical Quality:Adequate visualization. Velocities are measured in cm/s ; Diameters are measured in cm Right Doppler Measurements and Mapping + +------+------+ +-------+ + !Location !Signal!Reflux!Reflux (sec)!AP Diam!Trans Diam ! + +------+------+ +-------+ + !Sapheno Femoral Junction !Phasic!Yes !3.8 !0.84 !0.94 ! + +------+------+ +-------+ + !GSV High Thigh !Phasic!No !0 !0.47 !0.57 ! + +------+------+ +-------+ + !GSV Mid Thigh !Phasic!No !0 !0.47 !0.55 ! + +------+------+ +-------+ + !GSV Low Thigh !Phasic!Yes !2.4 !0.44 !0.62 ! + +------+------+ +-------+ + !GSV Knee !Phasic!Yes !3.3 !0.47 !0.67 ! + +------+------+ +-------+ + !GSV High Calf !Phasic!No !0 !0.38 !0.41 ! + +------+------+ +-------+ + !GSV Mid Calf !Phasic!No !0 !0.31 !0.32 ! + +------+------+ +-------+ + !GSV Low Calf !Phasic!No !0 !0.37 !0.36 ! + +------+------+ +-------+ + !Sapheno Popliteal Junction !Phasic!Yes !1.1 !0.56 !0.6 ! + +------+------+ +-------+ + !SSV High Calf !Phasic!Yes !1.6 !0.46 !0.48 ! + +------+------+ +-------+ + !SSV Mid Calf !Phasic!No !0 !0.4 !0.46 ! + +------+------+ +-------+ + !SSV Low Calf !Phasic!No !0 !0.32 !0.39 ! + +------+------+ +-------+ + Left Doppler Measurements and Mapping + +------+------+ +-------+ + !Location !Signal!Reflux!Reflux (sec)!AP Diam!Trans Diam ! + +------+------+ +-------+ + !Sapheno Femoral Junction !Phasic!No !0 !0.51 !0.55 ! + +------+------+ +-------+ + !GSV High Thigh !Phasic!No !0 !0.41 !0.51 ! + +------+------+ +-------+ + !GSV Mid Thigh !Phasic!No !0 !0.51 !0.58 ! + +------+------+ +-------+ + !GSV Low Thigh !Phasic!No !0 !0.51 !0.58 ! + +------+------+ +-------+ + !GSV Knee !Phasic!No !0 !0.45 !0.53 ! + +------+------+ +-------+ + !GSV High Calf !Phasic!Yes !2.9 !0.46 !0.55 ! + +------+------+ +-------+ + !GSV Mid Calf !Phasic!No !0 !0.35 !0.33 ! + +------+------+ +-------+ + !GSV Low Calf !Phasic!No !0 !0.36 !0.39 ! + +------+------+ +-------+ + !SSV High Calf !Phasic!No !0 !0.41 !0.46 ! + +------+------+ +-------+ + !SSV Mid Calf !Phasic!No !0 !0.41 !0.48 ! + +------+------+ +-------+ + !SSV Low Calf !Phasic!No !0 !0.29 !0.39 ! + +------+------+ +-------+ + Velocities are measured in cm/s ; Diameters are measured in cm Right Lower Extremities DVT Study Measurements Right 2D and Doppler Measurements + + + + +------+------+ + !Location !Visualized!Compressibility!Thrombosis!Signal!Reflux!Reflux ! ! ! ! ! ! ! !(sec) ! + + + + +------+------+ + !GSV Thigh !Yes !Yes !None !Phasic! ! ! + + + + +------+------+ + !Common !Yes !Yes !None !Phasic! ! ! !Femoral ! ! ! ! ! ! ! + + + + +------+------+ + !Prox !Yes !Yes !None !Phasic! ! ! !Femoral ! ! ! ! ! ! ! + + + + +------+------+ + !Mid Femoral!Yes !Yes !None !Phasic! ! ! + + + + +------+------+ + !Dist !Yes !Yes !None !Phasic! ! ! !Femoral ! ! ! ! ! ! ! + + + + +------+------+ + !Popliteal !Yes !Yes !None !Phasic! ! ! + + + + +------+------+ + !Gastroc !Yes !Yes !None !Phasic! ! ! + + + + +------+------+ + !PTV !Yes !Yes !None !Phasic! ! ! + + + + +------+------+ + !Peroneal !Yes !Yes !None !Phasic! ! ! + + + + +------+------+ + Left Lower Extremities DVT Study Measurements Left 2D and Doppler Measurements + + + + +------+------+ + !Location !Visualized!Compressibility!Thrombosis!Signal!Reflux!Reflux ! ! ! ! ! ! ! !(sec) ! + + + + +------+------+ + !GSV Thigh !Yes !Yes !None !Phasic! ! ! + + + + +------+------+ + !Common !Yes !Yes !None !Phasic! ! ! !Femoral ! ! ! ! ! ! ! + + + + +------+------+ + !Prox !Yes !Yes !None !Phasic! ! ! !Femoral ! ! ! ! ! ! ! + + + + +------+------+ + !Mid Femoral!Yes !Yes !None !Phasic! ! ! + + + + +------+------+ + !Dist !Yes !Yes !None !Phasic! ! ! !Femoral ! ! ! ! ! ! ! + + + + +------+------+ + !Popliteal !Yes !Yes !None !Phasic! ! ! + + + + +------+------+ + !Gastroc !Yes !Yes !None !Phasic! ! ! + + + + +------+------+ + !PTV !Yes !Yes !None !Phasic! ! ! + + + + +------+------+ + !Peroneal !Yes !Yes !None !Phasic! ! ! + + + + +------+------+ + Signature dtt: JAMES MANUEL dtmeliza: 07/13/17 1311 Physician Self Edit
== END | disposition disaster alternative care site (69) ==
LOC: GCAR 12:53
DX: I89.0 Lymphedema, not elsewhere classified (principal); I87.2 Venous insufficiency (chronic) (peripheral); I86.8 Varicose veins of other specified sites